=== PATIENT | male | born 1955 | race Caucasian/White ===

== ENCOUNTER 2022-02-16 18:00 | Observation (INO) | payer OTHER, BC ==
[~2022-02-16] VITALS: Ht 170.2 cm; Wt 66.1 kg
[2022-02-16] MEDS ORDERED: LACTATED RINGERS 1,000 ML IV ONE (18:15)
[2022-02-16] MEDS ORDERED: ceFAZolin INJECTION 1,000 MG VIAL IV ONE (18:15)
[2022-02-16] MEDS ORDERED: TETANUS,DIPTH,PERTUSS P/F (BOOSTRIX) 0.5 ML VIAL IM ONE (18:15)
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
[2022-02-16 18:21] LABS: HEMATOCRIT 40 % (40-54); HEMOGLOBIN 13.7 g/dL (13.3-17.7); MEAN CORPUSCULAR HEMOGLOBIN 29 pg (25-34); MEAN CORPUSCULAR HGB CONC 34 g/dL (32-36); MEAN CORPUSCULAR VOLUME 84 fL (80-99); MEAN PLATELET VOLUME 9.8 fL (9.0-12.2); PLATELET COUNT 488 10^3/uL (130-400); WHITE BLOOD COUNT 7.9 10^3/uL (4.3-11.0)
[2022-02-16 18:24] LABS: ALBUMIN 4.1 GM/DL (3.2-4.5); CHLORIDE 105 MMOL/L (98-107); POTASSIUM 3.3 MMOL/L (3.6-5.0); SODIUM 138 MMOL/L (135-145)
[2022-02-16 18:25] LABS: CALCIUM 9.3 MG/DL (8.5-10.1)
[2022-02-16 18:26] LABS: GLUCOSE 136 MG/DL (70-105)
[2022-02-16 18:27] LABS: CARBON DIOXIDE 20 MMOL/L (21-32); TOTAL PROTEIN 6.8 GM/DL (6.4-8.2)
[2022-02-16 18:28] LABS: BILIRUBIN,TOTAL 0.4 MG/DL (0.1-1.0)
[2022-02-16 18:29] LABS: FIBRIN DEGRADATION PRODUCTS 0.35 UG/ML (0.00-0.49); INR 0.9 (0.8-1.4); PROTHROMBIN TIME PATIENT 12.9 SEC (12.2-14.7)
[2022-02-16 18:30] LABS: ALKALINE PHOSPHATASE 36 U/L (40-136); CREATININE SERUM 1.17 MG/DL (0.60-1.30); GFR ESTIMATED 70; PHOSPHORUS 2.1 MG/DL (2.3-4.7)
[2022-02-16 18:31] LABS: BILIRUBIN,DIRECT 0.1 MG/DL (0.0-0.3); BILIRUBIN,INDIRECT 0.3 MG/DL; BUN/CREATININE RATIO 18
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
[2022-02-16 18:33] LABS: ALANINE AMINOTRANSFERASE 11 U/L (0-55)
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
[2022-02-16 19:15] LABS: BILIRUBIN,URINE NEGATIVE (NEGATIVE); CLARITY,URINE CLEAR; COLOR,URINE YELLOW; GLUCOSE, URINE (UA) TRACE (NEGATIVE); KETONES,URINE NEGATIVE (NEGATIVE); LEUKOCYTE ESTERASE ,URINE NEGATIVE (NEGATIVE); NITRITE,URINE NEGATIVE (NEGATIVE); PROTEIN,URINE NEGATIVE (NEGATIVE)
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
[2022-02-16 19:38] LABS: BACTERIA,URINE NEGATIVE /HPF; WBC,URINE RARE /HPF
[2022-02-16 20:07] LABS: AMPHETAMINE SCREEN, URINE NEGATIVE (NEGATIVE); BARBITURATE SCREEN URINE NEGATIVE (NEGATIVE); BENZODIAZEPINES SCREEN URINE NEGATIVE (NEGATIVE); CANNABINOID SCREEN, URINE POSITIVE (NEGATIVE); COCAINE SCREEN URINE NEGATIVE (NEGATIVE); METHADONE STAT NEGATIVE (NEGATIVE); METHAMPHETAMINE SCREEN URINE S NEGATIVE (NEGATIVE); OPIATE SCREEN URINE NEGATIVE (NEGATIVE); OXYCODONE STAT NEGATIVE (NEGATIVE); PROPOXYPHENE STAT NEGATIVE (NEGATIVE); TRICYCLIC ANTIDEPRESSANTS SCRE NEGATIVE (NEGATIVE)
[2022-02-16] MEDS ORDERED: ONDANSETRON 4 MG/2 ML (SDV) Z0FRAN IV PRN (20:45)
[2022-02-16] MEDS ORDERED: LISI2.5T13 PO (21:00)
[2022-02-16] MEDS ORDERED: D5 1/2 NS W/KCL 20 MEQ/L 1,000 ML IV ONE (21:37)
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
[2022-02-16] MEDS: D5 1/2 NS W/KCL 20 MEQ/L 1,000 ML IV SCH (21:52)
[2022-02-16] MEDS: fentaNYL INJ 100 MCG/2 ML AMP IV PRN (21:53)
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
[2022-02-17] MEDS: ceFAZolin INJECTION 1,000 MG VIAL IV SCH ×5 (00:55→23:57)
[2022-02-17] MEDS: fentaNYL INJ 100 MCG/2 ML AMP IV PRN ×3 (02:16→12:14)
[2022-02-17] MEDS: D5 1/2 NS W/KCL 20 MEQ/L 1,000 ML IV SCH ×3 (03:25→16:45)
[2022-02-17 04:48] LABS: BASOPHILS % (AUTO) 0 % (0-10); EOSINOPHILS % (AUTO) 0 % (0-10); HEMATOCRIT 41 % (40-54); HEMOGLOBIN 13.8 g/dL (13.3-17.7); LYMPHOCYTES # (AUTO) 0.8 10^3/uL (1.0-4.0); LYMPHOCYTES % (AUTO) 9 % (12-44); MEAN CORPUSCULAR HEMOGLOBIN 29 pg (25-34); MEAN CORPUSCULAR HGB CONC 34 g/dL (32-36); MEAN CORPUSCULAR VOLUME 84 fL (80-99); MEAN PLATELET VOLUME 10.4 fL (9.0-12.2); MONOCYTES # (AUTO) 0.9 10^3/uL (0.0-1.0); MONOCYTES % (AUTO) 10 % (0-12); NEUTROPHILS # (AUTO) 7.7 10^3/uL (1.8-7.8); NEUTROPHILS % (AUTO) 81 % (42-75); PLATELET COUNT 388 10^3/uL (130-400); WHITE BLOOD COUNT 9.5 10^3/uL (4.3-11.0)
[2022-02-17 05:02] LABS: POTASSIUM 4.1 MMOL/L (3.6-5.0)
[2022-02-17 05:04] LABS: CALCIUM 9.1 MG/DL (8.5-10.1)
[2022-02-17 05:05] LABS: TOTAL PROTEIN 6.6 GM/DL (6.4-8.2)
[2022-02-17 05:07] LABS: BILIRUBIN,TOTAL 0.4 MG/DL (0.1-1.0)
[2022-02-17 05:08] LABS: PHOSPHORUS 2.4 MG/DL (2.3-4.7)
[2022-02-17 05:09] LABS: CREATININE SERUM 0.98 MG/DL (0.60-1.30)
[2022-02-17] MEDS ORDERED: KCL 20 MEQ TAB (K-DUR) PO SCH (06:00)
[2022-02-17] MEDS ORDERED: POTASSIUM CL 10MEQ/50ML IVPB 50 ML IV SCH (06:00)
[2022-02-17] MEDS ORDERED: MAGNESIUM 1 GM/100 ML IVPB 100 ML IV SCH (06:00)
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
[2022-02-17] MEDS: hydrALAZINE (APESOLINE) 20 MG/ML VIAL IV SCH ×2 (11:30→18:52)
[2022-02-17] MEDS ORDERED: LIDOCAINE/EPI 1%-1:100,000 (XYLOCAINE) 10 ML INJ NR (12:00)
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
[2022-02-17] MEDS ORDERED: diphenhydrAMINE 50 MG/ML INJ (BENADRYL) ONE (13:37)
[2022-02-17] MEDS ORDERED: HYDROcodone/APAP 7.5 MG/325 MG (LORTAB, LORCET PLUS) TABLET PO PRN (17:15)
[2022-02-17] MEDS ORDERED: HYDR-3817 PO (17:21)
--- NOTE | 2022-02-17 17:22 | Discharge Inst-Surgical ---
D/C Lap Instructions-TARSHA New, Converted, or Re-Newed RX: RX on Chart Follow Up Appt in 2 weeks Activity as tolerated No driving for 24 hours No driving while on pain medications Incentive Spirometry use every 2 hours while awake Regular Diet Symptoms to Report: Fever over 101 degree F, Nausea/Vomiting Infection Signs and Symptoms to report: Increased redness, Foul odor of wound, Increased drainage Bathing instructions: May shower Operative Area Clean/Dry; Keep incision clean/dry If any problems/questions: Contact your physician or go to Emergency Room CARISSA WILLINGHAM MD Feb 17, 2022 17:22
[2022-02-17] MEDS ORDERED: hydrALAZINE (APESOLINE) 20 MG/ML VIAL IV PRN (20:00)
[2022-02-17] MEDS ORDERED: METOCLOPRAMIDE INJ 10 MG/2 ML (REGLAN) IVP PRN (20:15)
[2022-02-18 05:57] LABS: BASOPHILS % (AUTO) 0 % (0-10); EOSINOPHILS % (AUTO) 0 % (0-10); HEMATOCRIT 41 % (40-54); HEMOGLOBIN 14.2 g/dL (13.3-17.7); LYMPHOCYTES # (AUTO) 1.2 10^3/uL (1.0-4.0); LYMPHOCYTES % (AUTO) 13 % (12-44); MEAN CORPUSCULAR HEMOGLOBIN 29 pg (25-34); MEAN CORPUSCULAR HGB CONC 34 g/dL (32-36); MEAN CORPUSCULAR VOLUME 84 fL (80-99); MEAN PLATELET VOLUME 10.2 fL (9.0-12.2); MONOCYTES % (AUTO) 11 % (0-12); NEUTROPHILS # (AUTO) 6.9 10^3/uL (1.8-7.8); NEUTROPHILS % (AUTO) 75 % (42-75); PLATELET COUNT 399 10^3/uL (130-400); WHITE BLOOD COUNT 9.2 10^3/uL (4.3-11.0)
[2022-02-18] MEDS: ceFAZolin INJECTION 1,000 MG VIAL IV SCH ×2 (05:59→12:00)
[2022-02-18 06:34] LABS: ALBUMIN 3.8 GM/DL (3.2-4.5); POTASSIUM 3.9 MMOL/L (3.6-5.0)
[2022-02-18 06:36] LABS: CALCIUM 9.2 MG/DL (8.5-10.1)
[2022-02-18 06:39] LABS: BILIRUBIN,TOTAL 0.8 MG/DL (0.1-1.0)
[2022-02-18 06:40] LABS: CREATININE SERUM 0.95 MG/DL (0.60-1.30); PHOSPHORUS 2.7 MG/DL (2.3-4.7)
[2022-02-18 06:43] LABS: MAGNESIUM 1.9 MG/DL (1.6-2.4)
[2022-02-18 08:00] VITALS: BP 163/90
[2022-02-18 12:00] VITALS: BP 194/92
[2022-02-18] MEDS ORDERED: lisINopril 20 MG (PRINIVIL) TABLET PO ONE (14:30)
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
[2022-02-18] MEDS ORDERED: LISI20TA26 PO (14:40)
[2022-02-18 15:45] VITALS: BP 160/87
[2022-02-19] MEDS ORDERED: lisINopril 20 MG (PRINIVIL) TABLET PO SCH (09:00)
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
== END 2022-02-18 15:15 | disposition home or self-care (01) ==
LOC: EDUNIT# 18:00 → ER 18:01 → EDLOC 19:30 → ICU 19:30 → INTOOBSV 19:30 → 4TH 02-18 00:30
PROVIDERS: ADMIT Surgery; ATTEND Surgery
DX: S06.0X9A Concussion with loss of consciousness of unspecified duration, initial encounter (principal); S70.11XA Contusion of right thigh, initial encounter; S01.511A Laceration without foreign body of lip, initial encounter; S01.21XA Laceration without foreign body of nose, initial encounter; R41.0 Disorientation, unspecified; I10 Essential (primary) hypertension; F17.210 Nicotine dependence, cigarettes, uncomplicated; V23.4XXA Motorcycle driver injured in collision with car, pick-up truck or van in traffic accident, initial encounter; Y93.55 Activity, bike riding
CPT/HCPCS: 70450; 70486; 71045; 71260; 72125; 72128; 72131; 72170; 73552; 74177; 80048; 80053 ×2; 80076; 80306; 81000; 83735 ×3; 84100 ×3; 85025 ×2; 85027; 85379; 85384; 85610; 85730; 86850; 86900; 86901; 86920; 87081; 90471; 93005; 93041; 96361; 96374; 96375; 96376; 99285; G0378 ×2; G0480; 36415; 80320; 90715